=== PATIENT | female | born 1985 | race Caucasian/White ===

== ENCOUNTER 2019-02-21 11:33 | Inpatient (IN) ==
[2019-02-21 12:46] LABS: Apearance,Urine CLOUDY (Clear); Bilirubin,Urine Negative (Negative); Blood, Urine Negative (Negative); Glucose,Urine (UA) Negative (Negative); Ketones,Urine Negative (Negative); Nitrite,Urine Negative (Negative); Protein,Urine Negative; Urine Color Yellow (Yellow); Urine Specific Gravity 1.016 (1.001-1.035); Urine Urobilinogen < 2.0 EU/DL (0.2-1.0)
[2019-02-21 13:07] LABS: RBC,Urine FEW /HPF (0-4); Squamous Epithelial Cell,Urine Few /HPF (0-10); WBC,Urine MODERATE /HPF (0-6)
[2019-02-21 13:24] LABS: Barbiturates Screen,Urine Negative (Negative); Benzodiazepines Screen,Urine Positive (Negative); Cannabinoid Screen,Urine Negative (Negative); Opiate Screen,Urine Negative (Negative); Phencyclidine Screen,Urine Negative (Negative)
[2019-02-21] MEDS ORDERED: METOCLOPRAMIDE 10 MG/2 ML VIAL IV STA (14:18)
[2019-02-21] MEDS ORDERED: MORPHINE 4 MG/1 ML VIAL IM STA (14:18)
[2019-02-21] MEDS ORDERED: SODIUM CHLORIDE 0.9% 1,000 ML IV STA (14:18)
[2019-02-21 14:45] LABS: Basophils % 0.2 % (0.0-0.8); Eosinophils # 0.2 10*3/uL (0.0-0.87); Eosinophils % 1.8 % (0.00-10.9); Hematocrit 40.6 VOL% (35.7-47.0); Hemoglobin 13.3 GM/DL (12.0-16.0); Immature Granulocytes % 0.4 %; Immature Granulocytes Absolute 0.03 #; Lymphocytes # 1.5 10*3/uL (1.4-4.0); Lymphocytes % 18.1 % (21.3-54.2); Mean Corpuscular HGB Conc 32.8 GM/DL (32-36); Mean Corpuscular Volume 85.8 FL (87-102); Mean Platelet Volume 12.3 FL (9.6-12.0); Monocytes % 5.5 % (1.7-12.7); Platelet Count 199 T/CUMM (130-400); Red Blood Count 4.73 MC/CUMM (3.8-5.5); Red Cell Distribution Width 12.8 % (9.3-17.3); White Blood Count 8.5 T/CUMM (4-12)
[2019-02-21] MEDS ORDERED: MORPHINE 4 MG/1 ML VIAL IV STA (15:02)
[2019-02-21 15:08] LABS: Alanine Aminotransferase 32 U/L (13-56); Albumin 3.8 G/DL (3.4-5.0); Alkaline Phosphatase 102 U/L (45-117); Aspartate Amino Transferase 15 U/L (0-37); Bilirubin,Total < 0.39 MG/DL (0.2-1.0); Blood Urea Nitrogen 10 MG/DL (7-18); Calcium 8.7 MG/DL (8.5-10.1); Glucose 82 MG/DL (74-106); Osmolality,Calculated 274.5 MOS/KG (273-304); Total Protein 6.9 G/DL (6.4-8.3)
[2019-02-21] MEDS ORDERED: ONDANSETRON 4 MG/2 ML VIAL IV PRN (16:40)
[2019-02-21] MEDS: MORPHINE 4 MG/1 ML VIAL IV PRN (18:59)
[2019-02-21] MEDS: SODIUM CHLORIDE 0.9% 1,000 ML IV SCH (19:59)
[2019-02-21] MEDS: GENTAMICIN INJ 400 MG in SODIUM CHLORIDE 0.9% 100 ML IV SCH (21:57)
[2019-02-21] MEDS: levETIRAcetam 500 MG TABLET PO SCH (21:57)
[2019-02-21] MEDS: diphenhydrAMINE CAP 50 MG CAPSULE PO PRN (21:57)
[2019-02-22] MEDS: MORPHINE 4 MG/1 ML VIAL IV PRN ×6 (00:19→22:52)
[2019-02-22] MEDS: SODIUM CHLORIDE 0.9% 1,000 ML IV SCH ×2 (03:37→18:30)
[2019-02-22 04:37] LABS: Basophils % 0.2 % (0.0-0.8); Eosinophils # 0.1 10*3/uL (0.0-0.87); Eosinophils % 1.4 % (0.00-10.9); Hematocrit 41.2 VOL% (35.7-47.0); Immature Granulocytes % 0.3 %; Immature Granulocytes Absolute 0.02 #; Lymphocytes # 1.6 10*3/uL (1.4-4.0); Lymphocytes % 27.1 % (21.3-54.2); Mean Corpuscular HGB Conc 31.6 GM/DL (32-36); Mean Corpuscular Volume 87.3 FL (87-102); Mean Platelet Volume 12.1 FL (9.6-12.0); Monocytes % 5.8 % (1.7-12.7); Neutrophils % 65.2 % (38.7-73.9); Platelet Count 175 T/CUMM (130-400); Red Blood Count 4.72 MC/CUMM (3.8-5.5); White Blood Count 5.8 T/CUMM (4-12)
[2019-02-22 05:11] LABS: Calcium 8.2 MG/DL (8.5-10.1); Osmolality,Calculated 279.1 MOS/KG (273-304); Risk Ratio 3.97; Thyroid Stimulating Hormone 2.77 uIU/ml (0.358-3.74)
[2019-02-22] MEDS: PANTOPRAZOLE 40 MG TABLET PO SCH (08:45)
[2019-02-22] MEDS: levETIRAcetam 500 MG TABLET PO SCH ×2 (08:45→21:00)
[2019-02-22] MEDS: diphenhydrAMINE CAP 50 MG CAPSULE PO PRN ×2 (08:50→20:57)
[2019-02-22] MEDS ORDERED: LORazepam 2 MG/1 ML VIAL IV ONE (12:21)
[2019-02-22] MEDS ORDERED: FUROSEMIDE 20 MG/2 ML VIAL ONE ×2 (13:02)
[2019-02-22] MEDS ORDERED: IBUPROFEN 400 MG TABLET PO PRN (18:08)
[2019-02-22] MEDS: GENTAMICIN INJ 400 MG in SODIUM CHLORIDE 0.9% 100 ML IV SCH (21:00)
[2019-02-23] MEDS: MORPHINE 4 MG/1 ML VIAL IV PRN ×2 (03:34→08:38)
[2019-02-23 04:44] LABS: Basophils % 0.5 % (0.0-0.8); Eosinophils # 0.2 10*3/uL (0.0-0.87); Eosinophils % 3.7 % (0.00-10.9); Hematocrit 39.2 VOL% (35.7-47.0); Hemoglobin 12.5 GM/DL (12.0-16.0); Immature Granulocytes % 0.3 %; Immature Granulocytes Absolute 0.02 #; Lymphocytes # 1.5 10*3/uL (1.4-4.0); Lymphocytes % 24.8 % (21.3-54.2); Mean Corpuscular HGB Conc 31.9 GM/DL (32-36); Mean Corpuscular Volume 87.3 FL (87-102); Monocytes % 6.5 % (1.7-12.7); Neutrophils % 64.2 % (38.7-73.9); Platelet Count 168 T/CUMM (130-400); Red Blood Count 4.49 MC/CUMM (3.8-5.5); Red Cell Distribution Width 12.8 % (9.3-17.3); White Blood Count 6.2 T/CUMM (4-12)
[2019-02-23 05:02] LABS: Calcium 8.6 MG/DL (8.5-10.1); Osmolality,Calculated 275.5 MOS/KG (273-304)
[2019-02-23] MEDS: PANTOPRAZOLE 40 MG TABLET PO SCH (08:38)
[2019-02-23] MEDS: diphenhydrAMINE CAP 50 MG CAPSULE PO PRN (08:38)
[2019-02-23] MEDS: SODIUM CHLORIDE 0.9% 1,000 ML IV SCH (08:38)
[2019-02-23] MEDS: levETIRAcetam 500 MG TABLET PO SCH (08:38)
[2019-02-23 12:12] VITALS: BP 118/85
== END 2019-02-23 14:45 | disposition home or self-care (01) | DRG 463 ==
LOC: N.ED 11:33 → SUATTDRO 16:40 → N.EDINP 16:40 → N.2E 20:02
PROVIDERS: ADMIT Hospitalist; ATTEND Internal Medicine